=== PATIENT | male | born 1955 | race Caucasian/White ===

== ENCOUNTER 2022-08-22 16:14 | Inpatient (IN) | payer OTHER ==
[~2022-08-22] VITALS: Ht 172.7 cm; Wt 64.9 kg
--- NOTE | 2022-08-22 16:15 | NUR ---
RECEVED PT 66 YRS MALE BY nelly from store gnralized [facility]ness s/p fall down
--- NOTE | 2022-08-22 16:36 | NUR ---
DR OCASIO AT BEDSIDE FOR EVAL
[2022-08-22] MEDS ORDERED: FURO-144 PO (17:16)
[2022-08-22] MEDS ORDERED: DIGO125T PO (17:16)
[2022-08-22] MEDS ORDERED: OMEP40CA21 PO (17:16)
[2022-08-22] MEDS ORDERED: GLIP5TAB13 PO (17:16)
[2022-08-22] MEDS ORDERED: PROP20TA7 PO (17:16)
[2022-08-22] MEDS ORDERED: EMPA25TA PO (17:16)
[2022-08-22] MEDS ORDERED: ZOLP5TAB8 PO (17:16)
[2022-08-22] MEDS ORDERED: APIX5TAB PO (17:16)
[2022-08-22] MEDS ORDERED: SITA100T PO (17:16)
[2022-08-22] MEDS ORDERED: MIDO10TA PO (17:16)
[2022-08-22 17:18] LABS: BASOPHILS % (AUTO) 0.1 % (0.0-2.0); EOSINOPHILS % (AUTO) 0.9 % (0.0-6.0); HEMATOCRIT 28 % (39-51); HEMOGLOBIN 7.9 g/dL (13.5-17.5); LYMPHOCYTES # (AUTO) 0.2 K/uL (0.8-4.8); LYMPHOCYTES % (AUTO) 1.5 % (20.0-44.0); MEAN CORPUSCULAR HGB CONC 29 g/dl (31.0-36.0); MEAN CORPUSCULAR VOLUME 69 fL (80-96); MONOCYTES # (AUTO) 1.7 K/uL (0.1-1.30); MONOCYTES % (AUTO) 11.5 % (2.0-12.0); NEUTROPHILS # (AUTO) 12.8 K/uL (1.8-8.9); PLATELET COUNT (AUTO) 298 K/uL (150-450); RED BLOOD CELL COUNT(AUTO) 3.98 MIL/uL (4.5-6.0); WHITE BLOOD COUNT (AUTO) 14.9 K/uL (4.3-11.0)
[2022-08-22 17:27] LABS: CALCIUM, SERUM 8.6 mg/dL (8.5-10.1); CARBON DIOXIDE 12 mmol/L (21-32); CHLORIDE 101 mmol/L (98-107); CREATININE 2.3 mg/dL (0.6-1.3); GLUCOSE 194 mg/dL (74-106); SODIUM SERUM 135 mmol/L (136-145); UREA NITROGEN, BLOOD 35 mg/dL (7-18)
--- NOTE | 2022-08-22 17:30 | NUR ---
BLOOD DROW BY LAB TACH
[2022-08-22 17:41] LABS: ALANINE AMINOTRANSFERASE 27 U/L (12-78); ALBUMIN 2.5 g/dL (3.4-5.0); ALKALINE PHOSPHATASE 77 U/L (46-116); ASPARTATE AMINOTRANSFERASE 19 U/L (15-37); BILIRUBIN,DIRECT 0.8 mg/dL (0.0-0.2); BILIRUBIN,TOTAL 1.6 mg/dL (0.2-1.0); TOTAL PROTEIN, SERUM 6.3 g/dL (6.4-8.2)
--- NOTE | 2022-08-22 18:05 | NUR ---
COVID SWAB SENT TO LAB
--- NOTE | 2022-08-22 18:25 | NUR ---
TO CT SCAN OF HEAD VIA CHARMAINE
--- NOTE | 2022-08-22 19:25 | NUR ---
HANDOFF TO CORINNE BIANCHI
--- NOTE | 2022-08-22 19:42 | NUR ---
RECEIVED REPORT FROM DHARA BIANCHI
--- NOTE | 2022-08-22 19:42 | NUR ---
PT IS RESTING COMFORTABLY IN BED, ALERT AND ORIENTED. CONNECTED TO MONITOR. IV ACCESS LAC18G PATENT AND INTACT. FAMILY AT BEDSIDE. WILL CONTINUE TO MONITOR.
[2022-08-22] MEDS ORDERED: VANCOMYCIN 1 GM VIAL ONE (19:59)
[2022-08-22] MEDS ORDERED: CEFEPIME 1 GM VIAL ONE (19:59)
[2022-08-22] MEDS ORDERED: VANCOMYCIN 1 GM in IV D5W 250 ML IV ONE (20:00)
[2022-08-22] MEDS ORDERED: CEFEPIME 1 GM in IV D5W 50 ML IV ONE (20:00)
[2022-08-22] MEDS ORDERED: IV NS 0.9% 2,000 ML IV ONE (20:00)
[2022-08-22] MEDS ORDERED: ALBUMIN 5% 25 GM in PREMIX 1 EA IV ONE (21:30)
[2022-08-22] MEDS ORDERED: ALBUMIN 5% 250 ML IV ONE (21:42)
[2022-08-22] MEDS ORDERED: DEXTROSE 50%-WATER 50 ML DISP.SYRIN IV PRN (22:00)
[2022-08-22] MEDS ORDERED: ONDANSETRON HCL/PF 4 MG/2 ML VIAL IVP PRN (22:00)
[2022-08-22] MEDS ORDERED: ACETAMINOPHEN 325 MG TABLET PO PRN (22:00)
[2022-08-22] MEDS ORDERED: MORPHINE SULFATE INJ 2 MG/ML DISP.SYRIN IV PRN (22:00)
[2022-08-22 22:17] LABS: SITE, VBG Left Brachial; VBG BASE EXCESS -9.1 mmol/L; VBG COHb 0.3 %; VBG MetHb 2.2 %; VBG O2Hb 19.9 %; VBG PH 7.358; VBG PO2 16.6 mmHg; VENT MODE, VBG ROOM AIR
[2022-08-22 22:51] LABS: SERUM AMMONIA 34 umol/L (11-32)
[2022-08-22 22:55] LABS: IRON, SERUM 12 ug/dl (50-175); TOTAL IRON BINDING CAPACITY 317 ug/dl (250-450)
[2022-08-22 23:08] LABS: FERRITIN 18 ng/mL (8-388)
--- NOTE | 2022-08-22 23:18 | NUR ---
LACTIC ACID 5.0
--- NOTE | 2022-08-22 23:53 | NUR ---
REPORT GIVEN TO RAGHAV BIANCHI FOR AMARILIS
[2022-08-23] VITALS: BP 108/54
[2022-08-23] MEDS: BLOOD SUGAR DIAGNOSTIC 1 EACH STRIP IN SCH ×5 (00:33→22:32)
[2022-08-23] MEDS: FERROUS SULFATE (325 MG) 325 MG/TAB TABLET PO SCH ×4 (00:33→16:46)
[2022-08-23] MEDS: APIXABAN 5 MG TABLET PO SCH ×3 (00:34→16:44)
[2022-08-23] MEDS: MIDODRINE HCL (5MG) 5 MG TABLET PO SCH ×4 (00:35→16:46)
[2022-08-23] MEDS: INSULIN REGULAR, HUMAN 100 UNIT/ML 3 ML VIAL SQ PRN ×2 (00:41→22:36)
--- NOTE | 2022-08-23 01:21 | NUR ---
RN NOTE 0000 ADMITTED PT TO UNIT WITH DIAGNOSIS OF SEVERE SEPSIS. PT AO4. DENIES ANY DIZZINESS OR LIGHTHEADEDNESS, DENIES PAIN OR SOB. 100% ON ROOM AIR. HOOKED TO TELE MONITOR, SHOWS SR. PT AFEBRILE. ALL DUE MEDS WERE GIVEN ORDERED, FSBS 138, REFUSED INSULIN. LAC IV PATENT AND INTACT. NOTIFIED PT THAT HE IS SCHEDULED OR PARACENTESIS IN AM, VERBALIZES UNDERSTANDING AND STATED HE HAD IT FEW TIMES AND LAST WAS WEDNESDAY. ALL SAFETY MEASURES IN PLACE, ORIENTED TO BED OPERATION, CALL LIGHT AND TV. WILL CONTINUE TO MONITOR.
[2022-08-23 04:00] VITALS: BP 98/53
--- NOTE | 2022-08-23 06:53 | NUR ---
RN NOTE PT SLEEPING, AROUSES EASILY. TOLERATES ROOM AIR. DENIES SOB OR PAIN. REMAIN AFEBRILE. LAC IV INTACT AND PATENT. PT CONTINENT USES URINAL. WILL ENDORSE TO NEXT SHIFT NURSE FOR AMARILIS.
[2022-08-23 07:35] LABS: BASOPHILS % (AUTO) 0.4 % (0.0-2.0); EOSINOPHILS % (AUTO) 3.4 % (0.0-6.0); HEMATOCRIT 24 % (39-51); HEMOGLOBIN 7.3 g/dL (13.5-17.5); LYMPHOCYTES # (AUTO) 0.6 K/uL (0.8-4.8); LYMPHOCYTES % (AUTO) 5.7 % (20.0-44.0); MEAN CORPUSCULAR HGB CONC 30 g/dl (31.0-36.0); MEAN CORPUSCULAR VOLUME 67 fL (80-96); MONOCYTES # (AUTO) 1.4 K/uL (0.1-1.30); MONOCYTES % (AUTO) 12.3 % (2.0-12.0); NEUTROPHILS # (AUTO) 8.6 K/uL (1.8-8.9); NEUTROPHILS % (AUTO) 78.2 % (43.0-81.0); PLATELET COUNT (AUTO) 203 K/uL (150-450); RED BLOOD CELL COUNT(AUTO) 3.62 MIL/uL (4.5-6.0)
[2022-08-23 07:47] LABS: ALBUMIN 2.5 g/dL (3.4-5.0); BILIRUBIN,TOTAL 1.5 mg/dL (0.2-1.0); CALCIUM, SERUM 8.2 mg/dL (8.5-10.1); CREATININE 1.7 mg/dL (0.6-1.3); MAGNESIUM 2.4 mg/dL (1.8-2.4); PHOSPHORUS 3.5 mg/dL (2.5-4.9); POTASSIUM 4.8 mmol/L (3.5-5.1); TOTAL PROTEIN, SERUM 5.8 g/dL (6.4-8.2)
[2022-08-23 08:00] VITALS: BP 91/40
[2022-08-23] MEDS: DIGOXIN 0.125 MG TABLET PO SCH (08:06)
[2022-08-23] MEDS: PROPRANOLOL HCL 10 MG TABLET PO SCH ×2 (08:06→16:46)
[2022-08-23] MEDS: PANTOPRAZOLE 40 MG TABLET.DR PO SCH (08:06)
--- NOTE | 2022-08-23 08:20 | NUR ---
RN NOTE BP 91/40. MIDODRINE PO GIVEN ORDERED.
[2022-08-23] MEDS: CEFTRIAXONE 2 G in IV D5W 50 ML IV SCH (08:54)
[2022-08-23 10:12] LABS: EOSINOPHILS % (MANUAL) 2 % (0-4); LYMPHOCYTES % (MANUAL) 12 % (16-48); MONOCYTES % (MANUAL) 11 % (0-11.0); NEUTROPHILS % (MANUAL) 75 (42-76)
[2022-08-23 12:00] VITALS: BP 106/48
[2022-08-23 16:00] VITALS: BP 98/49
--- NOTE | 2022-08-23 16:43 | NUR ---
RN NOTE PER RADIOLOGY REQUEST, HOLD ELIQUIS UNTIL PARACENTESIS TOMORROW AM.
--- NOTE | 2022-08-23 16:51 | NUR ---
RN NOTE BLOOD SUGAR 133. PT REFUSES INSULIN. PT EDUCATED.
--- NOTE | 2022-08-23 19:40 | NUR ---
RN OPENING NOTES RECEIVED CARE OF PATIENT FROM AM SHIFT NURSE, PATIENT IS A/O X4, ABLE TO MAKE NEEDS KNOWN. PATIENT IN NO DISCOMFORT OR PAIN AT THIS TIME. PATIENT IS BREATHING ON ROOM AIR, TOLERATING WELL, NO SOB NOTED, O2 SAT 97%. NO SIGNIFICANT FINDINGS UPON INITIAL NURSING ASSESSMENTS. PENDING ORDERED PARACENTESIS PROCEDURE IN THE MORNING, CONSENT HAS BEEN OBTAINED. SAFETY MEASURES IMPLEMENTED PER HOSPITAL PROTOCOLS. WILL CARRY OUT PLAN OF CARE.
[2022-08-23 20:00] VITALS: BP 98/49
[2022-08-23] MEDS ORDERED: VANCOMYCIN 1 GM in IV D5W 250 ML IV SCH (21:00)
[2022-08-23] MEDS ORDERED: VANCOMYCIN HCL 0.75 GM in IV D5W 250 ML IV SCH (21:00)
[2022-08-24] VITALS: BP 97/56
[2022-08-24 04:00] VITALS: BP 93/55
[2022-08-24 06:13] LABS: BASOPHILS % (AUTO) 0.7 % (0.0-2.0); EOSINOPHILS % (AUTO) 9.5 % (0.0-6.0); HEMATOCRIT 25 % (39-51); HEMOGLOBIN 7.6 g/dL (13.5-17.5); LYMPHOCYTES # (AUTO) 0.7 K/uL (0.8-4.8); LYMPHOCYTES % (AUTO) 9.5 % (20.0-44.0); MEAN CORPUSCULAR HGB CONC 31 g/dl (31.0-36.0); MEAN CORPUSCULAR VOLUME 66 fL (80-96); MONOCYTES # (AUTO) 1.1 K/uL (0.1-1.30); MONOCYTES % (AUTO) 15.6 % (2.0-12.0); NEUTROPHILS # (AUTO) 4.5 K/uL (1.8-8.9); NEUTROPHILS % (AUTO) 64.7 % (43.0-81.0); PLATELET COUNT (AUTO) 199 K/uL (150-450); RED BLOOD CELL COUNT(AUTO) 3.76 MIL/uL (4.5-6.0)
[2022-08-24 06:38] LABS: MAGNESIUM 2.4 mg/dL (1.8-2.4); PHOSPHORUS 3.1 mg/dL (2.5-4.9)
[2022-08-24 06:52] LABS: CALCIUM, SERUM 8.3 mg/dL (8.5-10.1); CREATININE 1.2 mg/dL (0.6-1.3); POTASSIUM 4.4 mmol/L (3.5-5.1)
--- NOTE | 2022-08-24 07:20 | NUR ---
RN OPENING NOTE PT OBSERVED IN BED SLEEPING ON MECHANICAL VENT WITH ALL PRESCRIBED SETTINGS TOLERATING WELL O2 SAT 96%. PT IS A/OX4 ON TELE MONITOR SR. FC IS IN PLACE DRAINING URINE TO GRAVITY AND PT USES BEDSIDE COMMODE. GT IS IN PLACE WITH POSITIVE PLACEMENT INFUSING WITH JEVITY 1.2 @ 30ML/HR. IV ACCESS R WRIST 24G AND L HAND 22G NO FLUIDS INFUSING AT THIS TIME. BED IS LOCKED IN LOWEST POSITION X2 BED RAILS UP AND ALL HOSPITAL SAFETY PROTOCOLS ARE IN PLACE WILL CONTINUE TO MONITOR THIS SHIFT. Addendum: 08/24/22 at 0723 by SHARLENE PRITCHETT RN CHARTED ON WRONG PT
--- NOTE | 2022-08-24 07:20 | NUR ---
RN CLOSING NOTES ENDORSED CARE OF PATIENT TO AM SHIFT NURSE. NO SIGNIFICANT FINDINGS UPON ALL NURSING ASSESSMENTS. ALL DUE MEDS GIVEN AND PLAN OF CARE CARRIED OUT. SAFETY MEASURES KEPT IN PLACE PER HOSPITAL PROTOCOLS. ENDORSED CARE OF PATIENT TO AM SHIFT NURSE FOR CONTINUITY OF CARE.
--- NOTE | 2022-08-24 07:30 | NUR ---
RN OPENING NOTE PT OBSERVED IN BED SLEEPING AND IS ON RA TOLERATING WELL WITH NO SIGNS OF DISTRESS OR LABORED BREATHING O2 SAT 95%. PT IS A/OX4 ON TELE MONITOR SR AT THIS TIME. PT USES URINAL AND AMBULATES WITH ASSISTANCE. PT IS ON REGULAR DIET. IV ACCESS L AC 18G. PT IS TENTATIVELY SCHEDULED FOR PARACENTESIS LATER TODAY. BED IS LOCKED IN LOWEST POSITION X2 BED RAILS UP, CALL LEAL IS WITHIN REACH AND ALL HOSPITAL SAFETY MEASURES ARE IN PLACE WILL CONTINUE TO MONITOR THIS SHIFT.
[2022-08-24] MEDS: APIXABAN 5 MG TABLET PO SCH ×2 (07:45→12:37)
[2022-08-24 08:00] VITALS: BP 95/50
[2022-08-24] MEDS: BLOOD SUGAR DIAGNOSTIC 1 EACH STRIP IN SCH ×4 (08:00→22:08)
[2022-08-24] MEDS: PANTOPRAZOLE 40 MG TABLET.DR PO SCH (08:00)
[2022-08-24] MEDS: INSULIN REGULAR, HUMAN 100 UNIT/ML 3 ML VIAL SQ PRN ×4 (08:16→22:09)
[2022-08-24] MEDS: PROPRANOLOL HCL 10 MG TABLET PO SCH (08:17)
[2022-08-24] MEDS: FERROUS SULFATE (325 MG) 325 MG/TAB TABLET PO SCH ×3 (08:21→16:57)
[2022-08-24] MEDS: CEFTRIAXONE 2 G in IV D5W 50 ML IV SCH (08:21)
[2022-08-24] MEDS: DIGOXIN 0.125 MG TABLET PO SCH (08:22)
[2022-08-24] MEDS: MIDODRINE HCL (5MG) 5 MG TABLET PO SCH ×3 (08:22→16:57)
[2022-08-24 12:00] VITALS: BP 106/57
[2022-08-24 16:00] VITALS: BP 98/53
[2022-08-24] MEDS: GLUCERNA SHAKE 237 ML CAN PO SCH (16:57)
[2022-08-24 20:00] VITALS: BP 105/55
--- NOTE | 2022-08-24 22:10 | NUR ---
RN NOTE 2200 ACCUCHECK 237 MG/DL; INFORMED PT BG IS HIGH AND WILL NEED 4 UNITS OF REGULAR INSULIN. PT REFUSED TO RECEIVE INSULIN.
[2022-08-25] VITALS: BP 102/56
[2022-08-25 04:00] VITALS: BP 103/56
[2022-08-25 06:28] LABS: BASOPHILS # (AUTO) 0.1 K/uL (0.0-0.2); EOSINOPHILS % (AUTO) 7.5 % (0.0-6.0); HEMATOCRIT 26 % (39-51); HEMOGLOBIN 7.8 g/dL (13.5-17.5); LYMPHOCYTES # (AUTO) 0.5 K/uL (0.8-4.8); LYMPHOCYTES % (AUTO) 7.6 % (20.0-44.0); MEAN CORPUSCULAR HGB CONC 30 g/dl (31.0-36.0); MEAN CORPUSCULAR VOLUME 67 fL (80-96); MONOCYTES # (AUTO) 1.2 K/uL (0.1-1.30); MONOCYTES % (AUTO) 18.2 % (2.0-12.0); NEUTROPHILS # (AUTO) 4.2 K/uL (1.8-8.9); NEUTROPHILS % (AUTO) 65.7 % (43.0-81.0); PLATELET COUNT (AUTO) 181 K/uL (150-450); RED BLOOD CELL COUNT(AUTO) 3.89 MIL/uL (4.5-6.0); WHITE BLOOD COUNT (AUTO) 6.4 K/uL (4.3-11.0)
[2022-08-25 06:41] LABS: CALCIUM, SERUM 8.3 mg/dL (8.5-10.1); CREATININE 1.1 mg/dL (0.6-1.3); POTASSIUM 5.4 mmol/L (3.5-5.1)
[2022-08-25 06:47] LABS: ALBUMIN 2.3 g/dL (3.4-5.0); BILIRUBIN,TOTAL 0.7 mg/dL (0.2-1.0); TOTAL PROTEIN, SERUM 5.7 g/dL (6.4-8.2)
[2022-08-25 07:00] LABS: THYROID STIMULATING HORMONE 1.838 uIU/mL (0.358-3.74)
--- NOTE | 2022-08-25 07:10 | NUR ---
RN NOTE RECEIVED PT ON BED, A/OX4 , ON RA , WITH NO SIGNS OF DISTRESS OR LABORED BREATHING O2 SAT 95%. ON TELE SR HR IN 70'S , IV ACCESS L AC 18G. BED IS LOCKED IN LOWEST POSITION , BED RAILS UP, CALL LIGHT IS WITHIN REACH AND ALL HOSPITAL SAFETY MEASURES ARE IN PLACE WILL CONTINUE TO MONITOR THIS SHIFT.
--- NOTE | 2022-08-25 07:40 | NUR ---
FREDA RN CLOSING NOTE PT REMAINS IN BED, AWAKE, A&O X4; NOTED TO HAVE IRRITABILITY AND AGITATION. CONTINUES TO BE ON RA WITH O2SAT IN THE 90S; NO S/S OF RESP DISTRESS. ATTACHED TO EXTERNAL MONITOR, SR WITH HR OF 78. IV ACCESS ON LAC 18G, INTACT AND PATENT, FLUSHES EASILY WITH NO RESISTANCE; NO FLUIDS/MEDS INFUSING THROUGH IT. BED IN LOWEST POSITION, CALL LIGHT WITHIN REACH, SIDE RAILS UP X2. WILL ENDORSE TO DAYSHIFT NURSE TO CONTINUE CARE.
[2022-08-25 08:00] VITALS: BP 99/58
[2022-08-25] MEDS: GLUCERNA SHAKE 237 ML CAN PO SCH ×2 (08:00→16:40)
[2022-08-25] MEDS: INSULIN REGULAR, HUMAN 100 UNIT/ML 3 ML VIAL SQ PRN ×3 (08:29→22:07)
[2022-08-25] MEDS: BLOOD SUGAR DIAGNOSTIC 1 EACH STRIP IN SCH ×4 (08:29→22:00)
[2022-08-25] MEDS: MIDODRINE HCL (5MG) 5 MG TABLET PO SCH ×3 (08:30→16:38)
[2022-08-25] MEDS: FERROUS SULFATE (325 MG) 325 MG/TAB TABLET PO SCH ×3 (08:31→16:38)
[2022-08-25] MEDS: DIGOXIN 0.125 MG TABLET PO SCH (08:31)
[2022-08-25] MEDS: APIXABAN 5 MG TABLET PO SCH ×2 (08:33→16:39)
[2022-08-25] MEDS: PANTOPRAZOLE 40 MG TABLET.DR PO SCH (08:35)
[2022-08-25] MEDS ORDERED: CEFTRIAXONE 2 G in IV D5W 100 ML IV SCH (09:00)
[2022-08-25] MEDS ORDERED: BISACODYL (5 MG) 5 MG TABLET.DR PO ONE (09:00)
[2022-08-25] MEDS: glipiZIDE 5 MG TABLET PO SCH ×2 (09:24→16:37)
[2022-08-25] MEDS: LINAGLIPTIN 5 MG TABLET PO SCH (09:24)
[2022-08-25 12:00] VITALS: BP 105/63
[2022-08-25 12:11] LABS: LYMPHOCYTES % (MANUAL) 7 % (16-48); NEUTROPHILS % (MANUAL) 75 (42-76)
[2022-08-25 12:12] LABS: EOSINOPHILS % (MANUAL) 8 % (0-4); MONOCYTES % (MANUAL) 10 % (0-11.0)
[2022-08-25 12:47] LABS: CALCIUM, SERUM 8.1 mg/dL (8.5-10.1); CREATININE 1.2 mg/dL (0.6-1.3); POTASSIUM 4.1 mmol/L (3.5-5.1)
--- NOTE | 2022-08-25 13:00 | NUR ---
RN NOTES 1200 LAB RESULTS SENT TO DR LAWRENCE PER HIS ORDER . PT STATED CAN NOT GO HOME , DR LAWRENCE NOTIFED .
[2022-08-25] MEDS ORDERED: SOD FERRIC GLUC 125 MG in IV NS 0.9% 100 ML IV SCH (14:00)
--- NOTE | 2022-08-25 15:19 | NUR ---
ARIAS NOTES PT IS NOT STABLE TO GO TO CT PER DR STONE ORDER . Addendum: 08/25/22 at 1522 by GENARO SELLERS RN PLEASE DISREGARD ABOVE CHARTING , CHARTED ON A WRONG PT BY MISTAKE
[2022-08-25 16:00] VITALS: BP 105/70
--- NOTE | 2022-08-25 18:33 | NUR ---
RN NOTES NO SIGNIFICANT CHANGES NOTED ON THIS SHIFT, WILL ENDORSE TO UNIVERSITY PRESIDENT NURSE FOR CONTINUITY CARE
--- NOTE | 2022-08-25 19:30 | NUR ---
RN OPENING NOTES RECEIVED PT IN BED, AWAKE, WATCHING TV. AOx4, ABLE TO MAKE NEEDS KNOWN. ON RA AND TOLERATING WELL. NO SOB NOTED. NO S/SX OF RESPIRATORY DISTRESS NOTED. IV ACCESS PRESENT. SAFETY PRECAUTIONS IN PLACE: BED IN LOWEST, LOCKED POSITION, SIDERAILS UPx2, AND BRAKES ON. TABLE AND CALL LIGHT WITHIN REACH. ALL NEEDS MET AT THIS TIME.
[2022-08-25 20:00] VITALS: BP 102/61
[2022-08-25] MEDS: IV NS 0.9% 1,000 ML IV PRN (21:51)
[2022-08-26 05:00] VITALS: BP 97/57
[2022-08-26] MEDS: IV NS 0.9% 1,000 ML IV PRN (06:36)
--- NOTE | 2022-08-26 06:44 | NUR ---
RN CLOSING NOTES PT IN BED, ASLEEP, LAYING ON SIDE, AWAKENS TO VERBAL STIMULI. AOx4, ABLE TO MAKE NEEDS KNOWN. ON RA AND TOLERATING WELL. NO SOB NOTED. NO S/SX OF RESPIRATORY DISTRESS NOTED. IV ACCESS IN LAC #18G RUNNING NS @ 100 ML/HR. ALL ORDERS CARRIED OUT. ALL NEEDS MET. PT KEPT CLEAN AND DRY. SAFETY PRECAUTIONS IN PLACE: BED IN LOWEST, LOCKED POSITION, SIDERAILS UPx2, AND BRAKES ON. TABLE AND CALL LIGHT WITHIN REACH. WILL ENDORSE TO ONCOMING SHIFT FOR AMARILIS.
[2022-08-26 06:57] LABS: CALCIUM, SERUM 7.8 mg/dL (8.5-10.1); CREATININE 0.9 mg/dL (0.6-1.3); POTASSIUM 3.9 mmol/L (3.5-5.1)
[2022-08-26] MEDS: BLOOD SUGAR DIAGNOSTIC 1 EACH STRIP IN SCH ×2 (07:30→12:41)
[2022-08-26] MEDS: FERROUS SULFATE (325 MG) 325 MG/TAB TABLET PO SCH ×2 (09:17→12:48)
[2022-08-26] MEDS: LINAGLIPTIN 5 MG TABLET PO SCH (09:17)
[2022-08-26] MEDS: APIXABAN 5 MG TABLET PO SCH (09:19)
[2022-08-26] MEDS: MIDODRINE HCL (5MG) 5 MG TABLET PO SCH ×2 (09:20→12:47)
[2022-08-26] MEDS: GLUCERNA SHAKE 237 ML CAN PO SCH (09:21)
[2022-08-26] MEDS: glipiZIDE 5 MG TABLET PO SCH (09:23)
[2022-08-26] MEDS: DIGOXIN 0.125 MG TABLET PO SCH (09:24)
[2022-08-26] MEDS: PANTOPRAZOLE 40 MG TABLET.DR PO SCH (09:24)
[2022-08-26] MEDS: INSULIN REGULAR, HUMAN 100 UNIT/ML 3 ML VIAL SQ PRN (12:43)
[2022-08-26 12:47] VITALS: BP 98/65
--- NOTE | 2022-08-26 14:10 | NUR ---
Patient is alert , oriebted times 4 , at stable health condition , [facility] .Discharged from [facility]
== END 2022-08-26 14:12 | DRG 682 ==
LOC: ER 16:28 → TELE 22:14 → TELE1 23:17 → TELE-TD 08-23 00:36 → MEDSG1 08-25 08:56
PROVIDERS: ADMIT Internal Medicine; ATTEND Internal Medicine
PROC: 0W9G3ZZ Drainage of Peritoneal Cavity, Percutaneous Approach (ICD-10-PCS; principal; 2022-08-24)
DX: N17.0 Acute kidney failure with tubular necrosis (principal); E43 Unspecified severe protein-calorie malnutrition; K76.7 Hepatorenal syndrome; R57.1 Hypovolemic shock; E72.20 Disorder of urea cycle metabolism, unspecified; I48.20 Chronic atrial fibrillation, unspecified; E87.2 Acidosis; E86.0 Dehydration; E11.22 Type 2 diabetes mellitus with diabetic chronic kidney disease; Z20.822 Contact with and (suspected) exposure to COVID-19; D50.9 Iron deficiency anemia, unspecified; Z98.890 Other specified postprocedural states; Z79.84 Long term (current) use of oral hypoglycemic drugs; Z79.01 Long term (current) use of anticoagulants; Z79.899 Other long term (current) drug therapy; N18.9 Chronic kidney disease, unspecified; B18.2 Chronic viral hepatitis C; K70.31 Alcoholic cirrhosis of liver with ascites; E88.09 Other disorders of plasma-protein metabolism, not elsewhere classified; I12.9 Hypertensive chronic kidney disease with stage 1 through stage 4 chronic kidney disease, or unspecified chronic kidney disease; I95.89 Other hypotension; J47.9 Bronchiectasis, uncomplicated; K80.20 Calculus of gallbladder without cholecystitis without obstruction; W18.30XA Fall on same level, unspecified, initial encounter; Y92.009 Unspecified place in unspecified non-institutional (private) residence as the place of occurrence of the external cause
CPT/HCPCS: 36415; 36600; 71045-TC; 71250-TC; 76942-TC; 80048-TC; 80053-TC; 80076-TC; 80202-TC; 82140-TC; 82533; 82728-TC; 82803-TC; 82962-TC; 83540-TC; 83605-TC; 83735-TC; 83880; 84100-TC; 84155-TC; 84443-TC; 84484-TC; 85025-TC; 85730-TC; 87070-TC; 87081-TC; 89051-TC; 97112-TC; 97116-TC; 97530-TC; A4216; C9803; G0378; J0692; J0696; J1815; J2916; J3370; J7030; J7050; J7060; P9045

== ENCOUNTER 2022-10-18 02:41 | Inpatient (IN) | payer OTHER ==
[~2022-10-18] VITALS: Ht 160 cm; Wt 67.6 kg
[~2022-10-18 02:41] MED LIST: APIX5TAB PO; DIGO125T PO; EMPA25TA PO; FURO-144 PO; GLIP5TAB13 PO; MIDO10TA PO; OMEP40CA21 PO; PROP20TA7 PO; SITA100T PO; ZOLP5TAB8 PO
--- NOTE | 2022-10-18 02:53 | NUR ---
TO ER BED 10. [id number] FROM [facility] FOR AMS AND UNWITNESSED FALL. PER FACILITY, PTS BASELINE AAOX4, NOW AAOX2. LWK 0145. BG 345. PT WAS ALSO FOUND ON THE FLOOR. PT STATES "SLIPPED ON SLIPPERY FLOOR". PT IS ALERT, ANSWERED APPROPRIATELY. FOLLOWS COMMANDS. NO SLURRED SPEECH. NO FACIAL DROOP. RR EVEN AND NON LABORED. CONNECTED TO POX AND HEART MONITOR. AWAITING MD TILLEY
--- NOTE | 2022-10-18 02:59 | NUR ---
COVID SWAB COLLECTED
--- NOTE | 2022-10-18 03:20 | NUR ---
PT CAME BACK FROM CT
[2022-10-18 03:56] LABS: BASOPHILS # (AUTO) 0.1 K/uL (0.0-0.2); BASOPHILS % (AUTO) 1.5 % (0.0-2.0); EOSINOPHILS % (AUTO) 8.7 % (0.0-6.0); HEMATOCRIT 37 % (39-51); HEMOGLOBIN 11.9 g/dL (13.5-17.5); LYMPHOCYTES # (AUTO) 0.5 K/uL (0.8-4.8); LYMPHOCYTES % (AUTO) 5.9 % (20.0-44.0); MEAN CORPUSCULAR HGB CONC 32 g/dl (31.0-36.0); MEAN CORPUSCULAR VOLUME 85 fL (80-96); MONOCYTES # (AUTO) 1.5 K/uL (0.1-1.30); NEUTROPHILS # (AUTO) 5.1 K/uL (1.8-8.9); NEUTROPHILS % (AUTO) 64.9 % (43.0-81.0); PLATELET COUNT (AUTO) 164 K/uL (150-450); RED BLOOD CELL COUNT(AUTO) 4.32 MIL/uL (4.5-6.0); WHITE BLOOD COUNT (AUTO) 7.9 K/uL (4.3-11.0)
[2022-10-18 04:10] LABS: SERUM AMMONIA 127 umol/L (11-32)
[2022-10-18 04:22] LABS: THYROID STIMULATING HORMONE 2.718 uIU/mL (0.358-3.74)
[2022-10-18] MEDS ORDERED: ONDANSETRON HCL/PF - ER 4 MG/2 ML VIAL IV ONE (04:30)
[2022-10-18] MEDS ORDERED: LACTULOSE 10 G/15 ML UDC (PYXIS) PO ONE ×2 (04:30→05:00)
[2022-10-18] MEDS ORDERED: LACTULOSE 10 G/15 ML UDC (PYXIS) ONE ×2 (04:31→05:05)
[2022-10-18] MEDS ORDERED: ONDANSETRON HCL/PF 4 MG/2 ML VIAL ONE (04:31)
--- NOTE | 2022-10-18 04:37 | NUR ---
PT STILL UNABLE TO PROVIDE URINE AT THIS TIME
--- NOTE | 2022-10-18 04:49 | NUR ---
URINE COLLECTED AND SENT TO LAB
[2022-10-18 05:18] LABS: BILIRUBIN,URINE NEGATIVE (NEGATIVE); COLOR,URINE YELLOW (YELLOW); LEUKOCYTE ESTERASE ,URINE NEGATIVE (NEGATIVE); NITRITE, URINE NEGATIVE (NEGATIVE); PROTEIN,URINE NEGATIVE (NEGATIVE); UGLUCOSE NEGATIVE (NEGATIVE); UROBILINOGEN,URINE 0.2 EU/dL (0.2)
--- NOTE | 2022-10-18 05:33 | NUR ---
SPOKE TO JULES MARCH AND PROVIDED CLINICAL INFORMATION
--- NOTE | 2022-10-18 06:26 | NUR ---
AUTH OBTAINED TO BE ADMITTED UNDER DR LAWRENCE
--- NOTE | 2022-10-18 06:34 | NUR ---
DR PHILLIP FROM [facility] PAGED
--- NOTE | 2022-10-18 06:42 | NUR ---
DR DAVISON ON PHONE WITH DR PHILLIP
[2022-10-18 07:47] LABS: ALANINE AMINOTRANSFERASE 36 U/L (12-78); ALBUMIN 2.3 g/dL (3.4-5.0); ALCOHOL, BLOOD < 3 mg/dL (0-0); ALKALINE PHOSPHATASE 202 U/L (46-116); ASPARTATE AMINOTRANSFERASE 49 U/L (15-37); BILIRUBIN,DIRECT 0.5 mg/dL (0.0-0.2); BILIRUBIN,TOTAL 1.4 mg/dL (0.2-1.0); CALCIUM, SERUM 8.6 mg/dL (8.5-10.1); CARBON DIOXIDE 17 mmol/L (21-32); CREATININE 1.5 mg/dL (0.6-1.3); GLUCOSE 136 mg/dL (74-106); POTASSIUM 4.8 mmol/L (3.5-5.1); SODIUM SERUM 150 mmol/L (136-145); TOTAL PROTEIN, SERUM 6.7 g/dL (6.4-8.2); UREA NITROGEN, BLOOD 27 mg/dL (7-18)
[2022-10-18] MEDS ORDERED: LINA5TAB PO (07:53)
[2022-10-18] MEDS ORDERED: MAGN400O6 PO (07:53)
[2022-10-18] MEDS ORDERED: FERR325T23 PO (07:53)
[2022-10-18] MEDS ORDERED: INSU100V3 SQ (07:53)
[2022-10-18] MEDS ORDERED: SPIR50TA5 PO (07:53)
[2022-10-18] MEDS ORDERED: SENN-261 PO (07:53)
[2022-10-18] MEDS ORDERED: AMIN30LI2 PO (07:53)
[2022-10-18] MEDS ORDERED: ACET-2605 PO (07:53)
[2022-10-18] MEDS ORDERED: PANT40TA2 PO (07:53)
[2022-10-18] MEDS ORDERED: NA P133E RC (07:53)
[2022-10-18] MEDS ORDERED: ACET-868 PO (07:53)
[2022-10-18] MEDS ORDERED: LACT10SO3 PO (07:53)
[2022-10-18] MEDS ORDERED: BISA10SU11 RC (07:53)
[2022-10-18] MEDS ORDERED: POTA10TA10 PO (07:53)
--- NOTE | 2022-10-18 08:05 | NUR ---
PT AWAKE AND VERBALLY RESPONSIVE, NOT IN ACUTE DISTRESS. CREAM DUMPER AT BEDSIDE ASSISTING PT W/ ADL.
--- NOTE | 2022-10-18 08:30 | NUR ---
started new iv line at left wrist 20g .
[2022-10-18 08:56] LABS: EOSINOPHILS % (MANUAL) 10 % (0-4); LYMPHOCYTES % (MANUAL) 7 % (16-48); MONOCYTES % (MANUAL) 7 % (0-11.0); NEUTROPHILS % (MANUAL) 76 (42-76)
--- NOTE | 2022-10-18 09:21 | NUR ---
GOT BED 103.
--- NOTE | 2022-10-18 09:23 | NUR ---
ARIAS CASE, FOR REPORT
--- NOTE | 2022-10-18 09:41 | NUR ---
PT REPORT GIVEN TO ARIAS CASE
--- NOTE | 2022-10-18 10:03 | NUR ---
PT TRANSFERRED TO 103 VIA GURNEY. WARM HANDOFF GIVEN TO ARIAS CASE
[2022-10-18] MEDS ORDERED: ONDANSETRON HCL/PF 4 MG/2 ML VIAL IV PRN (11:30)
[2022-10-18] MEDS ORDERED: BISACODYL SUPP (10 MG) 10 MG/SUPP.RECT SUPP.RECT RC PRN (11:30)
[2022-10-18] MEDS ORDERED: MORPHINE SULFATE INJ 2 MG/ML DISP.SYRIN IV PRN (11:30)
[2022-10-18] MEDS ORDERED: IBUPROFEN 400 MG TABLET PO PRN ×2 (11:30)
[2022-10-18] MEDS ORDERED: MAGNESIUM HYDROXIDE 30 ML UDC PO PRN (11:30)
[2022-10-18] MEDS ORDERED: NA PHOS,M-B/NA PHOS,DI-BA 1 EA ENEMA RC PRN (11:30)
[2022-10-18] MEDS ORDERED: MORPHINE SULFATE INJ 4 MG/ML DISP.SYRIN IV PRN (11:30)
[2022-10-18] MEDS ORDERED: DEXTROSE 50%-WATER 50 ML DISP.SYRIN IV PRN (12:00)
[2022-10-18] MEDS ORDERED: INSULIN REGULAR, HUMAN 100 UNIT/ML 3 ML VIAL SQ PRN (12:00)
[2022-10-18] MEDS: DIGOXIN 0.125 MG TABLET PO SCH (12:20)
[2022-10-18] MEDS: LACTULOSE 10 G/15 ML UDC (PYXIS) PO SCH ×3 (12:21→20:06)
[2022-10-18] MEDS: FERROUS SULFATE (325 MG) 325 MG/TAB TABLET PO SCH ×3 (12:21→17:42)
[2022-10-18] MEDS: BLOOD SUGAR DIAGNOSTIC 1 EACH STRIP IN SCH ×3 (12:21→22:47)
[2022-10-18] MEDS: MIDODRINE HCL (5MG) 5 MG TABLET PO SCH ×3 (12:22→17:00)
[2022-10-18] MEDS: INSULIN REGULAR, HUMAN 100 UNIT/ML 3 ML VIAL SQ PRN ×3 (13:30→22:48)
[2022-10-18] MEDS ORDERED: RIFAXIMIN 550 MG TABLET PO SCH (15:00)
[2022-10-18 15:22] LABS: CALCIUM, SERUM 8.4 mg/dL (8.5-10.1); CREATININE 1.4 mg/dL (0.6-1.3)
[2022-10-18 15:26] LABS: ALBUMIN 2.2 g/dL (3.4-5.0); BILIRUBIN,TOTAL 1.8 mg/dL (0.2-1.0); TOTAL PROTEIN, SERUM 6.3 g/dL (6.4-8.2)
[2022-10-18 15:32] LABS: BASOPHILS # (AUTO) 0.1 K/uL (0.0-0.2); BASOPHILS % (AUTO) 0.8 % (0.0-2.0); HEMATOCRIT 36 % (39-51); HEMOGLOBIN 11.6 g/dL (13.5-17.5); LYMPHOCYTES # (AUTO) 0.2 K/uL (0.8-4.8); LYMPHOCYTES % (AUTO) 2.8 % (20.0-44.0); MEAN CORPUSCULAR HGB CONC 32 g/dl (31.0-36.0); MEAN CORPUSCULAR VOLUME 85 fL (80-96); MONOCYTES # (AUTO) 1.1 K/uL (0.1-1.30); MONOCYTES % (AUTO) 12.7 % (2.0-12.0); NEUTROPHILS # (AUTO) 6.8 K/uL (1.8-8.9); NEUTROPHILS % (AUTO) 82.7 % (43.0-81.0); PLATELET COUNT (AUTO) 174 K/uL (150-450); RED BLOOD CELL COUNT(AUTO) 4.21 MIL/uL (4.5-6.0); WHITE BLOOD COUNT (AUTO) 8.2 K/uL (4.3-11.0)
[2022-10-18 16:00] VITALS: BP 111/71
--- NOTE | 2022-10-18 16:00 | NUR ---
TANK WORKER NOTE SPOKE WITH DR. NAPIER, OKAY TO DO PARACENTESIS TOMORROW. SHAE ISMA NOTIFIED AND WILL RELAY TO DR. POWELL RADIOLOGY
--- NOTE | 2022-10-18 16:42 | NUR ---
RN NOTES: LAB CALLED [facility] IS 53 CALLED PHARMACY WITH ORDER TO HOLD VANCO
--- NOTE | 2022-10-18 19:00 | NUR ---
MS RN CLOSING NOTES: PT IN BED AWAKE AND ALERT X 2, NO SOB NOTED NOTED WITH CONFUSION, OK TO HAVE PARACENTESIS IN AM, POOR PO INTAKE MD AWARE OF PT REFUSING SOME MEDS AND POOR PO INTAKE, CONSENT FOR PARACENTESIS WAS TAKEN FROM GRAND DAUGHTER ALLIE WHO SAID DAUGHTER DOES NOT HAVE WORKING NUMBER PT IS AWARE OF THE PROCEDURE.DENIED PAIN OR DISCOMFORT AT THIS TIME, NO SOB NOTED ON ROOM AIR, IV LINE INTACT AND PATENT, BED IS IN LOW AND LOCKED POSITION, CALL LIGHT WITHIN REACH, BED ALARM IS ON, ENDORSED TO [employer] [employer] MAGISTRATE NURSE FOR AMARILIS
--- NOTE | 2022-10-18 19:05 | NUR ---
RN OPENING NOTES RECEIVED PATIENT ON BED AWAKE, A/O X 2-3, WITH PERIOD OF FORGETFULNESS/CONFUSION, ON ROOM AIR, SATING ST 97%. RESPIRATORY EVEN AND UNLABORED, NO SOB NOTED. NO S/S OF DISTRESS NOTED. AFEBRILE. NOTED WITH LEFT WRIST #20 PERIPHERAL LINE, INTACT, PATENT. FLUSHED WITH NS. ALL SAFETY PRECAUTION PROVIDED. BED IN LOWEST POSITION, LOCKED. CALL LIGHT WITH IN REACH. CONTINUE TO MONITOR
[2022-10-18 20:00] VITALS: BP 133/76
--- NOTE | 2022-10-19 | NUR ---
RN NOTES PATIENT PLACED ON NPO FOR PARACENTESIS.
[2022-10-19] MEDS: LACTULOSE 10 G/15 ML UDC (PYXIS) PO SCH ×5 (00:23→21:39)
[2022-10-19 04:00] VITALS: BP 121/71
--- NOTE | 2022-10-19 07:31 | NUR ---
RN OPENING NOTES RECEIVED PATIENT SLEEPING, A/O X 2-3, WITH PERIOD OF FORGETFULNESS/CONFUSION, ON 2L 02 VIA NC, RESPIRATORY EVEN AND UNLABORED, NO SOB NOTED. NO S/S OF DISTRESS NOTED. AFEBRILE. NOTED WITH LEFT WRIST #20 PERIPHERAL LINE, INTACT. ALL SAFETY PRECAUTION PROVIDED. BED IN LOWEST POSITION, LOCKED. CALL LIGHT WITH IN REACH. WILL CONTINUE PLAN OF CARE.
[2022-10-19] MEDS: PANTOPRAZOLE 40 MG TABLET.DR PO SCH (08:01)
[2022-10-19] MEDS: RIFAXIMIN 550 MG TABLET PO SCH ×2 (08:13→16:47)
[2022-10-19] MEDS: MIDODRINE HCL (5MG) 5 MG TABLET PO SCH ×3 (08:13→16:47)
[2022-10-19] MEDS: FERROUS SULFATE (325 MG) 325 MG/TAB TABLET PO SCH ×3 (08:14→16:47)
[2022-10-19] MEDS: FUROSEMIDE 40 MG TABLET PO SCH (08:14)
[2022-10-19] MEDS: DIGOXIN 0.125 MG TABLET PO SCH (08:14)
[2022-10-19] MEDS: BLOOD SUGAR DIAGNOSTIC 1 EACH STRIP IN SCH ×4 (08:15→21:18)
--- NOTE | 2022-10-19 08:30 | NUR ---
RN LATE ENTRY NOTES: SUGAR CHECK AT 0730H 129mg/dl, no regular insulin coverage given.
[2022-10-19 08:41] LABS: BASOPHILS # (AUTO) 0.1 K/uL (0.0-0.2); BASOPHILS % (AUTO) 0.7 % (0.0-2.0); EOSINOPHILS % (AUTO) 4.9 % (0.0-6.0); HEMATOCRIT 36 % (39-51); HEMOGLOBIN 11.7 g/dL (13.5-17.5); LYMPHOCYTES # (AUTO) 0.6 K/uL (0.8-4.8); LYMPHOCYTES % (AUTO) 5.4 % (20.0-44.0); MEAN CORPUSCULAR HGB CONC 33 g/dl (31.0-36.0); MEAN CORPUSCULAR VOLUME 85 fL (80-96); MONOCYTES # (AUTO) 1.7 K/uL (0.1-1.30); MONOCYTES % (AUTO) 16.8 % (2.0-12.0); NEUTROPHILS # (AUTO) 7.5 K/uL (1.8-8.9); NEUTROPHILS % (AUTO) 72.2 % (43.0-81.0); PLATELET COUNT (AUTO) 201 K/uL (150-450); RED BLOOD CELL COUNT(AUTO) 4.22 MIL/uL (4.5-6.0); WHITE BLOOD COUNT (AUTO) 10.4 K/uL (4.3-11.0)
[2022-10-19] MEDS ORDERED: POTASSIUM CHLORIDE 10 MEQ TABLET.SA PO SCH (09:00)
[2022-10-19] MEDS: PROSTAT (PYXIS) 30 ML UDC PO SCH (09:00)
[2022-10-19] MEDS ORDERED: SPIRONOLACTONE 25 MG TABLET PO SCH (09:00)
[2022-10-19 09:18] LABS: CALCIUM, SERUM 8.9 mg/dL (8.5-10.1); CREATININE 1.2 mg/dL (0.6-1.3); POTASSIUM 5.8 mmol/L (3.5-5.1)
[2022-10-19 09:52] LABS: ALBUMIN 2.2 g/dL (3.4-5.0); BILIRUBIN,DIRECT 0.8 mg/dL (0.0-0.2); BILIRUBIN,TOTAL 1.9 mg/dL (0.2-1.0); TOTAL PROTEIN, SERUM 6.4 g/dL (6.4-8.2)
--- NOTE | 2022-10-19 10:44 | NUR ---
RN NOTES NOTED PATIENT HAVING PARACENTESIS AT THIS MOMENT. NOTED K LEVEL 5.8, DR. LAWRENCE NOTIFIED, WITH NEW ORDER TO STOP KCL AND ALDACTONE, NOTED AND CARRIED OUT. M
[2022-10-19 12:00] VITALS: BP 119/69
--- NOTE | 2022-10-19 12:45 | NUR ---
RN NOTES 5500ML OF PERITONEAL FLUIDS REMOVED FROM RIGHT LOWER ABDOMEN, NOTED WITH YELLOWISH DRAINAGE, SENT 5500ML PERITONEAL FLUIDS TO THE LABORATORY FOR TEST. NO BLEEDING NOTED ON THE RLQ PARACENTESIS SITE OF ABDOMEN. WILL CONTINUE PLAN OF CARE.
[2022-10-19] MEDS ORDERED: LACTULOSE 10 G/15 ML UDC (PYXIS) PO SCH (14:00)
[2022-10-19] MEDS: INSULIN REGULAR, HUMAN 100 UNIT/ML 3 ML VIAL SQ PRN ×3 (16:30→21:21)
--- NOTE | 2022-10-19 18:06 | NUR ---
RN CLOSING NOTES PATIENT ALERT AND VERBALLY RESPONSIVE, ON RA, RESPIRATORY EVEN AND UNLABORED, NO SOB NOTED. NO S/S OF DISTRESS NOTED. NOTED WITH LEFT WRIST #20 PERIPHERAL LINE, PATENT AND INTACT, FLUSHES WELL. NO BLEEDING NOTED ON THE PARACENTESIS SITE. ALL SAFETY PRECAUTION PROVIDED. BED IN LOWEST POSITION, LOCKED. CALL LIGHT WITH IN REACH. WILL ENDORSE TO PLASTIC DESIGN APPLIER NURSE FOR AMARILIS.
[2022-10-19 20:00] VITALS: BP 103/67
--- NOTE | 2022-10-19 21:25 | NUR ---
MS RN OPENING NOTE PT RECEIVED IN BED, AWAKE, A&O X3; AGITATED. PT ON RA WITH CURRENT O2SAT OF 100%; NO S/S OF RESP DISTRESS, NO SOB OR COUGH, NON-LABORED AND EQUAL BREATHING. VSS, WILL CONTINUE TO MONITOR THROUGHOUT THE NIGHT NEEDED. IV ACCESS ON LEFT WRIST 20G, INTACT AND PATENT, FLUSHES EASILY WITH NO RESISTANCE; NO MEDS/FLUIDS INFUSING THROUGH IT. BED IN LOWEST POSITION, CALL LIGHT WITHIN REACH, SIDE RAILS UP X2. WILL CONTINUE TO MONITOR THROUGHOUT THE NIGHT.
--- NOTE | 2022-10-19 21:39 | NUR ---
RN NOTE LACTULOSE SCHEDULED FOR 0 NOT ADMINISTERED; PT REFUSED MED, SAYING HE DOESN'T WANT THE MED THAT "MAKES HIM POOP."
[2022-10-20 04:00] VITALS: BP 105/67
[2022-10-20] MEDS: LACTULOSE 10 G/15 ML UDC (PYXIS) PO SCH ×2 (06:00→14:17)
--- NOTE | 2022-10-20 06:04 | NUR ---
RN NOTE PT REFUSED LACTULOSE SCHEDULED FOR 0600
[2022-10-20 06:28] LABS: CALCIUM, SERUM 8.3 mg/dL (8.5-10.1); CREATININE 1.1 mg/dL (0.6-1.3); POTASSIUM 5.9 mmol/L (3.5-5.1)
--- NOTE | 2022-10-20 06:42 | NUR ---
MS RN CLOSING NOTE PT REMAINS IN BED, ASLEEP BUT EASILY AROUSABLE, A&O X3; NOTED TO HAVE AGITATION AND IRRITABILITY THROUGHOUT THE NIGHT. CONTINUES TO BE ON RA WITH O2SAT STABLE AT 100%; NO S/S OF RESP DISTRESS, NO SOB OR COUGH, NON-LABORED AND EQUAL BREATHING. VSS THROUGHOUT THE NIGHT WITH NO SIGNIFICANT CHANGES. IV ACCESS ON LEFT WRIST 20G, INTACT AND PATENT, FLUSHES EASILY WITH NO RESISTANCE; NO MEDS/FLUIDS INFUSING THROUGH IT. ALL DUE MEDS ADMINISTERED DURING THE NIGHT. BED IN LOWEST POSITION, CALL LIGHT WITHIN REACH, SIDE RAILS UP X2. WILL ENDORSE TO DAYSHIFT NURSE TO CONTINUE CARE.
[2022-10-20] MEDS ORDERED: RIFA550T PO (07:42)
[2022-10-20] MEDS ORDERED: LACT10SO3 PO (07:42)
[2022-10-20] MEDS: BLOOD SUGAR DIAGNOSTIC 1 EACH STRIP IN SCH ×4 (07:44→17:19)
[2022-10-20] MEDS ORDERED: APIX5TAB PO (07:57)
[2022-10-20 08:00] VITALS: BP 114/72
[2022-10-20] MEDS ORDERED: SODIUM POLYSTYRENE SULFONATE 15 G/60 ML BOTTLE PO ONE (08:00)
[2022-10-20] MEDS: PROSTAT (PYXIS) 30 ML UDC PO SCH (09:00)
[2022-10-20] MEDS: FERROUS SULFATE (325 MG) 325 MG/TAB TABLET PO SCH ×3 (09:04→16:39)
[2022-10-20] MEDS: PANTOPRAZOLE 40 MG TABLET.DR PO SCH (09:05)
[2022-10-20] MEDS: MIDODRINE HCL (5MG) 5 MG TABLET PO SCH ×3 (09:05→16:39)
[2022-10-20] MEDS: RIFAXIMIN 550 MG TABLET PO SCH ×2 (09:05→16:39)
[2022-10-20] MEDS: FUROSEMIDE 40 MG TABLET PO SCH (09:06)
[2022-10-20] MEDS: DIGOXIN 0.125 MG TABLET PO SCH (09:06)
[2022-10-20] MEDS: APIXABAN 5 MG TABLET PO SCH ×2 (09:25→16:48)
[2022-10-20 12:00] VITALS: BP 114/72
--- NOTE | 2022-10-20 14:45 | NUR ---
report called to amanda blas in [facility].
--- NOTE | 2022-10-20 14:45 | NUR ---
ms rn note called granddaughter Radha notified that patient will possible discharge to [facility] ,will f\u
[2022-10-20 15:29] LABS: CALCIUM, SERUM 7.7 mg/dL (8.5-10.1); CREATININE 1.2 mg/dL (0.6-1.3); POTASSIUM 4.1 mmol/L (3.5-5.1)
[2022-10-20 16:00] VITALS: BP 101/61
[2022-10-20 16:39] VITALS: BP 101/61
[2022-10-20] MEDS: INSULIN REGULAR, HUMAN 100 UNIT/ML 3 ML VIAL SQ PRN (17:25)
--- NOTE | 2022-10-20 19:05 | NUR ---
patient discharged to [facility] at this time via ambulance in the company of two attendants.
== END 2022-10-20 19:05 | DRG 441 ==
LOC: ER 02:51 → MEDSG1 09:22 → UNDOADMIN 09:29 → MEDSG1 09:29 → ER 10:22 → UNDODISIN 10-20 20:20
PROVIDERS: ADMIT Internal Medicine; ATTEND Internal Medicine
PROC: 0W9G3ZZ Drainage of Peritoneal Cavity, Percutaneous Approach (ICD-10-PCS; principal; 2022-10-19)
DX: K76.82 Hepatic encephalopathy (principal); E43 Unspecified severe protein-calorie malnutrition; I48.20 Chronic atrial fibrillation, unspecified; J84.9 Interstitial pulmonary disease, unspecified; N17.9 Acute kidney failure, unspecified; K70.31 Alcoholic cirrhosis of liver with ascites; D50.9 Iron deficiency anemia, unspecified; K74.69 Other cirrhosis of liver; B19.20 Unspecified viral hepatitis C without hepatic coma; Z79.01 Long term (current) use of anticoagulants; E11.9 Type 2 diabetes mellitus without complications; Z79.4 Long term (current) use of insulin; Z79.84 Long term (current) use of oral hypoglycemic drugs; I10 Essential (primary) hypertension; G93.89 Other specified disorders of brain; E87.5 Hyperkalemia; Z91.81 History of falling; M47.812 Spondylosis without myelopathy or radiculopathy, cervical region; Z91.041 Radiographic dye allergy status
CPT/HCPCS: 36415; 70450-TC; 71045-TC; 72125-TC; 76942-TC; 80048-TC; 80053-TC; 80076-TC; 80162-TC; 82040-TC; 82140-TC; 82962-TC; 84439-TC; 84443-TC; 84484-TC; 85025-TC; 85730-TC; 87070-TC; 89051-TC; 92526; 92611-TC; 97112-TC; 97116-TC; 97530-TC; C9803; G0378; G0480; J1815; J2270; J2405